=== PATIENT | female | born 1985 | race Caucasian/White ===

== ENCOUNTER → 2017-07-16 | Outpatient (CLI) | payer OTHER ==
[~2017-07-16] MED LIST: ALBU90OI INH; ALBU90OI61 INH; AMOX500 PO; AMPDEX10CR PO; AMPDEX5; ARIP10 PO; BENZ100A PO; BUPR150ER PO; Bactrim Ds Tab1 EACH PO; CEPH500 PO; CIPR500 PO; CLIN300 PO; CLOB.05TC TP; CLON.1 PO; CLON.2 PO; CODGUAEL PO; CRUTCH3 USE; CYCL10 PO; Colace100 MG PO; DOCU100 PO; DOMPERIDONE PO; DULO30 PO; Dilantin 100 m100 MG PO; ENSURE; ERYT500 PO; FAMO40 PO; GUMMY VITAMINS; HYDACE5 PO; HYDACE5325 PO; HYDCOR1TC TOP; HYDPAM25 PO; HYDPAM50 PO; IBUP600 PO; IBUP800 PO; LOPE2EL PO; LORA10ER PO; LORA2 PO; MELO7.5 PO; METH40 PO; METO10 PO; MULVITMINE PO; Miralax17 GM PO; NAPR375 PO; NAPR550 PO; NITR100CA PO; OMEP10ER PO; OMEP20ER PO; ONDA4 PO; ONDA4ODT MM; ONDA8ODT MM; OXYACE5T PO; OXYC15ER PO; PHENA200 PO; PRED20 PO; PROACE100 PO; PROM25 PO; Protonix40 MG PO; Pyridium200 MG PO; QUET200; QUET25 PO; RXCLIN PO; RXHYDACE PO; SUBOXONE 8 MG-1 EACH SL; SULTRIDS PO; TRAM50 PO; UNK ABX; VENL150ER PO; VENL25 PO; VENL75ER PO; Zithromax250 MG PO; Zofran4 MG PO; [UNRECOGNIZED DRUG - REMARK]; [UNRECOGNIZED DRUG - REMARK]; work note
[2017-07-16 18:19] LABS: U Amphetamine Screen Not Detected; U Barbituate Screen Not Detected; U Benzodiazapine Screen Not Detected; U Buprenorphine Screen Not Detected; U Cannabinoids Screen Not Detected; U Cocaine Screen Not Detected; U Methadone Screen DETECTED; U Methamphetamine Screen Not Detected; U Opiates Screen Not Detected; U Oxycodone Screen Not Detected; U Phencyclidine Screen Not Detected; U Propoxyphene Screen Not Detected
== END ==
LOC: LAB 16:54 → LAB SHORT 16:54
PROVIDERS: Psychiatry & Neurology Psychiatry
DX: F11.20 Opioid dependence, uncomplicated (principal)

== ENCOUNTER → 2017-11-06 | Outpatient (CLI) | payer OTHER ==
[2017-11-09 01:08] LABS: CHLAMYDIA TRACHOMATIS, NAA Negative (Negative); NEISSERIA GONORRHOEAE, NAA Negative (Negative)
== END | disposition home or self-care (01) ==
LOC: LAB 18:06 → LAB SHORT 18:06
PROVIDERS: Nurse Practitioner Women's Health
DX: Z11.3 Encounter for screening for infections with a predominantly sexual mode of transmission (principal); N89.8 Other specified noninflammatory disorders of vagina
CPT/HCPCS: 87070; 87205; 87491; 87591

== ENCOUNTER 2017-12-25 17:20 | Emergency (ER) | payer OTHER ==
[~2017-12-25] VITALS: Ht 160 cm; Wt 68.0 kg
[2017-12-25] MEDS ORDERED: Amphetamine Sal20 MG PO (17:43)
[2017-12-25] MEDS ORDERED: Zofran Odt4 MG SL (19:06)
== END 2017-12-25 19:33 | disposition home or self-care (01) ==
LOC: ER 17:20
DX: B34.9 Viral infection, unspecified (principal); F32.9 Major depressive disorder, single episode, unspecified; F17.290 Nicotine dependence, other tobacco product, uncomplicated; Z88.1 Allergy status to other antibiotic agents; Z88.0 Allergy status to penicillin; Z91.010 Allergy to peanuts; Z79.899 Other long term (current) drug therapy
CPT/HCPCS: 99282

== ENCOUNTER 2018-01-21 12:11 | Emergency (ER) | payer OTHER ==
[~2018-01-21] VITALS: Ht 157.5 cm; Wt 63.5 kg
[~2018-01-21 12:11] MED LIST changes: +Amphetamine Sal20 MG PO; +Zofran Odt4 MG SL
[2018-01-21] MEDS ORDERED: TERB2.5 UD (12:52)
[2018-01-21] MEDS ORDERED: BUSP15 (12:53)
[2018-01-21] MEDS ORDERED: CYCL10 PO (14:25)
[2018-01-26] MEDS ORDERED: AMPDEX5 PO (18:46)
[2018-01-26] MEDS ORDERED: BUSP5 PO (18:46)
[2018-01-26] MEDS ORDERED: CEFD300 PO (20:19)
== END 2018-01-21 14:28 | disposition home or self-care (01) ==
LOC: ER 12:11
DX: S30.0XXA Contusion of lower back and pelvis, initial encounter (principal); F32.9 Major depressive disorder, single episode, unspecified; F17.200 Nicotine dependence, unspecified, uncomplicated; Z88.1 Allergy status to other antibiotic agents; Z88.0 Allergy status to penicillin; Z79.899 Other long term (current) drug therapy; Z91.010 Allergy to peanuts; W10.9XXA Fall (on) (from) unspecified stairs and steps, initial encounter
CPT/HCPCS: 72100; 72170; 96372; 99283-25; J1885

== ENCOUNTER → 2018-02-26 | Outpatient (CLI) | payer OTHER ==
[~2018-02-26] MED LIST changes: +AMPDEX5 PO; +BUSP15; +BUSP5 PO; +CEFD300 PO; +TERB2.5 UD
[2018-02-28 01:12] LABS: CHLAMYDIA TRACHOMATIS, NAA Negative (Negative); NEISSERIA GONORRHOEAE, NAA Positive (Negative)
== END | disposition home or self-care (01) ==
LOC: LAB 11:17 → LAB SHORT 11:17
PROVIDERS: Obstetrics & Gynecology Gynecology
DX: N76.0 Acute vaginitis (principal)
CPT/HCPCS: 87070; 87147; 87205; 87491; 87591

== ENCOUNTER → 2018-08-30 | Outpatient (CLI) | payer OTHER ==
[~2018-08-30] MED LIST changes: +BELPTAB PO; +Pepcid20 MG PO
[2018-09-02 04:08] LABS: CHLAMYDIA TRACHOMATIS, NAA Negative (Negative); NEISSERIA GONORRHOEAE, NAA Negative (Negative)
== END | disposition home or self-care (01) ==
LOC: LAB SHORT 14:48 → LAB 14:48
PROVIDERS: Family Medicine
DX: R10.9 Unspecified abdominal pain (principal)
CPT/HCPCS: 87491; 87591

== ENCOUNTER 2018-09-01 17:13 | Emergency (ER) | payer OTHER ==
[~2018-09-01] VITALS: Ht 157.5 cm; Wt 61.2 kg
[~2018-09-01 17:13] MED LIST changes: -BELPTAB PO; -Pepcid20 MG PO
[2018-09-01 18:23] LABS: BASOPHILS ABSOLUTE AUTO 0.01 K/mm3 (0.00-0.23); BASOPHILS PERCENT AUTO 0 % (0-2); EOSINOPHILS ABSOLUTE AUTO 0.03 K/mm3 (0.00-0.68); EOSINOPHILS PERCENT AUTO 0 % (0-6); Hematocrit 44.3 % (33.0-51.0); Hemoglobin 14.8 g/dL (11.5-16.0); IMMATURE GRAN ABSOLUTE AUTO 0.02 K/mm3 (0.00-0.10); IMMATURE GRAN PERCENT AUTO 0 % (0-1); LYMPHOCYTES ABSOLUTE AUTO 1.94 K/mm3 (0.84-5.20); LYMPHOCYTES PERCENT AUTO 23 % (21-46); MONOCYTES ABSOLUTE AUTO 0.48 K/mm3 (0.16-1.47); MONOCYTES PERCENT AUTO 6 % (4-13); Mean Corpuscular HGB 31.6 pg (26.0-34.0); Mean Corpuscular HGB Conc 33.4 g/dL (31.5-36.5); Mean Corpuscular Volume 95 fL (80-100); Mean Platelet Volume 9.8 fL (9.1-12.4); NEUTROPHILS ABSOLUTE AUTO 5.99 K/mm3 (1.96-9.15); NEUTROPHILS PERCENT AUTO 71 % (41-73); Platelet Count 230 K/mm3 (150-400); RDW Standard Deviation 41.5 fL (35.1-46.3); Red Blood Cell Count 4.68 M/mm3 (3.80-5.20); White Blood Cell Count 8.47 K/mm3 (4.00-11.30)
[2018-09-01 18:38] LABS: Alanine Aminotransfer (ALT/SGP 28 U/L (12-78); Albumin, Blood 3.5 g/dL (3.4-5.0); Albumin/Globulin Ratio 0.7 (0.8-1.8); Alk Phos 82 U/L (50-136); Anion Gap 7 mmol/L (6-16); Aspartate Aminotrans (AST/SGOT 37 U/L (12-37); Bilirubin, Total 0.4 mg/dL (0.1-1.0); Blood Urea Nitrogen 13 mg/dL (8-24); Bun/Creatinine Ratio 13.4 (12.0-20.0); CO2, Blood 25 mmol/L (21-32); Calcium, Blood 8.9 mg/dL (8.5-10.1); Chloride, Blood 110 mmol/L (98-108); Creatinine, Blood 0.97 mg/dL (0.40-1.00); Globulin, Blood 4.7 g/dL (2.2-4.0); Glomerular Filtration Rate >60 (60-); Glucose, Blood 101 mg/dL (70-99); Potassium, Blood 4.1 mmol/L (3.5-5.5); Sodium, Blood 142 mmol/L (136-145); Total Protein, Blood 8.2 g/dL (6.4-8.2)
[2018-09-01 18:39] LABS: Source, Urine Clean Catch
[2018-09-01 18:52] LABS: Appearance, Urine Hazy (Clear); Blood, Urine Neg (Neg); Color, Urine Yellow (P-Yellow); Glucose Qualitative, Urine Neg (Neg); Ketones, Urine Neg (Neg); Leukocyte Esterase, Urine 1+ (Neg); Nitrite, Urine Pos (Neg); Protein, Urine 2+ (Neg); Urobilinogen, Urine 1+ (Normal)
[2018-09-01 18:56] LABS: Bilirubin, Urine 3+ (Neg)
[2018-09-01 19:01] LABS: Bacteria Many /hpf; Calcium Oxalate Crystals Mod /hpf; Hyaline Casts 0-2 /lpf (0-2); Red Blood Cells, Urine 0-2 /hpf (0-2); Squamous Epithelial Cells Mod /hpf (Few); WBC Cast 0-2 /lpf (0)
[2018-09-01] MEDS ORDERED: BELPTAB PO (21:56)
[2018-09-01] MEDS ORDERED: Pepcid20 MG PO (21:56)
== END 2018-09-01 22:22 | disposition home or self-care (01) ==
LOC: ER 17:13
PROVIDERS: Emergency Medicine
DX: R10.30 Lower abdominal pain, unspecified (principal); R10.13 Epigastric pain; F32.9 Major depressive disorder, single episode, unspecified; F90.9 Attention-deficit hyperactivity disorder, unspecified type; G56.00 Carpal tunnel syndrome, unspecified upper limb; F17.210 Nicotine dependence, cigarettes, uncomplicated; Z88.0 Allergy status to penicillin; Z91.010 Allergy to peanuts; Z88.1 Allergy status to other antibiotic agents
CPT/HCPCS: 36415; 80053; 81001; 81025; 83690; 85025; 87077; 87086; 87186; 96361; 96374; 96375; 99284-25; J1200; J2765; J7120

== ENCOUNTER → 2018-09-27 | Outpatient (CLI) | payer OTHER ==
[~2018-09-27] MED LIST changes: +AMPDEX15CR PO; +BELPTAB PO; +Buspirone HCl7.5 MG PO; +Cheratussin AC118 ML PO; +Flagyl500 MG PO; +Flonase 0.05% N16 GM; +GABA100 PO; +Pepcid20 MG PO; +Prednisone20 MG PO; +SUBOXONE 4 MG-1 EACH SL; +Sudogest30 MG PO; +VENL75ER; +Vibramycin100 MG PO
== END | disposition home or self-care (01) ==
LOC: LAB 16:00 → LAB SHORT 16:00
DX: R19.7 Diarrhea, unspecified (principal); R10.9 Unspecified abdominal pain
CPT/HCPCS: 87338

== ENCOUNTER 2018-11-24 16:01 | Emergency (ER) | payer OTHER ==
[~2018-11-24] VITALS: Ht 157.5 cm; Wt 65.8 kg
[~2018-11-24 16:01] MED LIST changes: -AMPDEX15CR PO; -Buspirone HCl7.5 MG PO; -Cheratussin AC118 ML PO; -Flagyl500 MG PO; -Flonase 0.05% N16 GM; -GABA100 PO; -Prednisone20 MG PO; -SUBOXONE 4 MG-1 EACH SL; -Sudogest30 MG PO; -VENL75ER; -Vibramycin100 MG PO
[2018-11-24 16:45] LABS: Source, Urine Clean Catch
[2018-11-24 16:48] LABS: Bilirubin, Urine Neg (Neg); Blood, Urine Neg (Neg); Glucose Qualitative, Urine Neg (Neg); Ketones, Urine Neg (Neg); Leukocyte Esterase, Urine Neg (Neg); Nitrite, Urine Neg (Neg); Protein, Urine Neg (Neg); Urobilinogen, Urine NORM (Normal)
[2018-11-24] MEDS ORDERED: IBUP800 PO (16:51)
[2018-11-24] MEDS ORDERED: GABA100 PO (16:51)
[2018-11-24] MEDS ORDERED: Buspirone HCl7.5 MG PO (16:51)
[2018-11-24] MEDS ORDERED: SUBOXONE 4 MG-1 EACH SL (16:51)
[2018-11-24 16:54] LABS: Appearance, Urine Clear (Clear); Color, Urine Yellow (P-Yellow)
[2018-11-24 19:52] LABS: Candida species (DNA Probe) Negative (NEGATIVE); G. vaginalis (DNA Probe) Positive (NEGATIVE); T. vaginalis (DNA Probe) Negative (NEGATIVE)
[2018-11-24] MEDS ORDERED: Flagyl500 MG PO (20:28)
[2018-11-27 02:06] LABS: CHLAMYDIA TRACHOMATIS, NAA Negative (Negative); NEISSERIA GONORRHOEAE, NAA Negative (Negative)
== END 2018-11-24 20:40 | disposition home or self-care (01) ==
LOC: ER 16:01
PROVIDERS: Physician Assistant
DX: N76.0 Acute vaginitis (principal); Z88.1 Allergy status to other antibiotic agents; Z88.0 Allergy status to penicillin; Z91.010 Allergy to peanuts; Z79.899 Other long term (current) drug therapy; F90.9 Attention-deficit hyperactivity disorder, unspecified type; F32.9 Major depressive disorder, single episode, unspecified; F17.210 Nicotine dependence, cigarettes, uncomplicated
CPT/HCPCS: 81003; 87480; 87491; 87510; 87591; 87660; 99284; A9270-GY

== ENCOUNTER → 2018-11-26 | Outpatient (CLI) | payer OTHER ==
[~2018-11-26] MED LIST changes: +AMPDEX15CR PO; +Buspirone HCl7.5 MG PO; +Cheratussin AC118 ML PO; +Flagyl500 MG PO; +Flonase 0.05% N16 GM; +GABA100 PO; +Prednisone20 MG PO; +SUBOXONE 4 MG-1 EACH SL; +Sudogest30 MG PO; +VENL75ER; +Vibramycin100 MG PO
[2018-11-29 02:06] LABS: CHLAMYDIA TRACHOMATIS, NAA Negative (Negative); NEISSERIA GONORRHOEAE, NAA Negative (Negative)
== END | disposition home or self-care (01) ==
LOC: LAB SHORT 17:36 → LAB 17:36
PROVIDERS: Nurse Practitioner Women's Health
DX: Z20.2 Contact with and (suspected) exposure to infections with a predominantly sexual mode of transmission (principal)
CPT/HCPCS: 87070; 87205; 87491; 87591

== ENCOUNTER → 2018-12-03 | Outpatient (CLI) | payer OTHER ==
[2018-12-04 14:07] LABS: HPV 16 Negative (Negative); HPV 18 Negative (Negative); HPV OTHER HR TYPES Negative (Negative)
== END | disposition home or self-care (01) ==
LOC: LAB SHORT 12:25 → LAB 12:25
PROVIDERS: Nurse Practitioner Women's Health
DX: Z12.4 Encounter for screening for malignant neoplasm of cervix (principal); Z91.89 Other specified personal risk factors, not elsewhere classified
CPT/HCPCS: 87624; G0123

== ENCOUNTER → 2018-12-16 | Outpatient (CLI) | payer OTHER ==
[2018-12-16 15:42] LABS: U Amphetamine Screen Not Detected; U Barbituate Screen Not Detected; U Benzodiazapine Screen Not Detected; U Buprenorphine Screen DETECTED; U Cannabinoids Screen Not Detected; U Cocaine Screen Not Detected; U Methadone Screen Not Detected; U Methamphetamine Screen Not Detected; U Opiates Screen Not Detected; U Oxycodone Screen Not Detected; U Phencyclidine Screen Not Detected; U Propoxyphene Screen Not Detected
== END | disposition home or self-care (01) ==
LOC: LAB 15:00 → LAB SHORT 15:00
PROVIDERS: Psychiatry & Neurology Psychiatry
DX: Z51.81 Encounter for therapeutic drug level monitoring (principal); Z79.899 Other long term (current) drug therapy
CPT/HCPCS: G0480

== ENCOUNTER → 2019-01-12 | Outpatient (CLI) | payer OTHER | END | disposition home or self-care (01) | LOC: LAB SHORT 16:10 → LAB 16:10 | DX: J06.9 Acute upper respiratory infection, unspecified (principal) | CPT/HCPCS: 87081 ==

== ENCOUNTER 2019-01-24 16:26 | Emergency (ER) | payer OTHER ==
[~2019-01-24] VITALS: Ht 162.6 cm; Wt 65.8 kg
[~2019-01-24 16:26] MED LIST changes: -AMPDEX15CR PO; -Cheratussin AC118 ML PO; -Flonase 0.05% N16 GM; -Prednisone20 MG PO; -Sudogest30 MG PO; -VENL75ER; -Vibramycin100 MG PO
[2019-01-24] MEDS ORDERED: GABA100 PO (16:43)
[2019-01-24] MEDS ORDERED: AMPDEX15CR PO (16:43)
[2019-01-24] MEDS ORDERED: VENL75ER (16:43)
[2019-01-24] MEDS ORDERED: Sudogest30 MG PO (17:01)
[2019-01-24] MEDS ORDERED: Flonase 0.05% N16 GM (17:01)
[2019-01-24] MEDS ORDERED: Cheratussin AC118 ML PO (17:01)
[2019-01-24] MEDS ORDERED: Vibramycin100 MG PO (17:01)
== END 2019-01-24 17:09 | disposition home or self-care (01) ==
LOC: ER 16:26
DX: J32.9 Chronic sinusitis, unspecified (principal); H65.90 Unspecified nonsuppurative otitis media, unspecified ear; F32.9 Major depressive disorder, single episode, unspecified; F90.9 Attention-deficit hyperactivity disorder, unspecified type; F17.210 Nicotine dependence, cigarettes, uncomplicated; Z88.1 Allergy status to other antibiotic agents; Z88.0 Allergy status to penicillin; Z91.018 Allergy to other foods; Z79.899 Other long term (current) drug therapy
CPT/HCPCS: 71046; 99283-25; J1100

== ENCOUNTER 2019-01-28 16:08 | Emergency (ER) | payer OTHER ==
[~2019-01-28] VITALS: Ht 162.6 cm; Wt 63.5 kg
[~2019-01-28 16:08] MED LIST changes: +AMPDEX15CR PO; +Cheratussin AC118 ML PO; +Flonase 0.05% N16 GM; +Sudogest30 MG PO; +VENL75ER; +Vibramycin100 MG PO
== END 2019-01-28 16:25 | disposition home or self-care (01) ==
LOC: ER 16:08
DX: J32.9 Chronic sinusitis, unspecified (principal); Z88.1 Allergy status to other antibiotic agents; Z88.0 Allergy status to penicillin; Z91.018 Allergy to other foods; Z79.899 Other long term (current) drug therapy
CPT/HCPCS: 99281

== ENCOUNTER 2019-02-01 17:54 | Emergency (ER) | payer OTHER ==
[~2019-02-01] VITALS: Ht 162.6 cm; Wt 65.8 kg
[2019-02-01] MEDS ORDERED: Vibramycin100 MG PO (18:08)
[2019-02-01] MEDS ORDERED: Prednisone20 MG PO (18:08)
== END 2019-02-01 18:12 | disposition home or self-care (01) ==
LOC: ER 17:54
DX: J32.9 Chronic sinusitis, unspecified (principal); Z88.1 Allergy status to other antibiotic agents; Z88.0 Allergy status to penicillin; Z91.010 Allergy to peanuts; Z79.899 Other long term (current) drug therapy; F90.9 Attention-deficit hyperactivity disorder, unspecified type; F32.9 Major depressive disorder, single episode, unspecified; F17.210 Nicotine dependence, cigarettes, uncomplicated
CPT/HCPCS: 99283; J1100

== ENCOUNTER 2019-02-26 12:34 | Emergency (ER) | payer OTHER ==
[~2019-02-26] VITALS: Ht 160 cm; Wt 69.0 kg
[~2019-02-26 12:34] MED LIST changes: +Prednisone20 MG PO
[2019-02-26] MEDS ORDERED: SUBOXONE 8 MG-1 EACH SL (13:25)
[2019-02-26] MEDS ORDERED: VENL75ER (13:25)
[2019-02-26] MEDS ORDERED: Cleocin HCl300 MG PO (13:32)
== END 2019-02-26 13:48 | disposition home or self-care (01) ==
LOC: ER 12:34
DX: K08.89 Other specified disorders of teeth and supporting structures (principal); F32.9 Major depressive disorder, single episode, unspecified; F90.9 Attention-deficit hyperactivity disorder, unspecified type; F17.290 Nicotine dependence, other tobacco product, uncomplicated; Z79.899 Other long term (current) drug therapy; Z88.0 Allergy status to penicillin
CPT/HCPCS: 99282

== ENCOUNTER 2019-06-13 19:03 | Emergency (ER) | payer OTHER ==
[~2019-06-13] VITALS: Ht 157.5 cm; Wt 70.8 kg
[~2019-06-13 19:03] MED LIST changes: +Cleocin HCl300 MG PO
[2019-06-13 19:22] LABS: Source, Urine Clean Catch
[2019-06-13 19:33] LABS: Appearance, Urine Clear (Clear); Bilirubin, Urine Neg (Neg); Blood, Urine Neg (Neg); Color, Urine Yellow (P-Yellow); Glucose Qualitative, Urine Neg (Neg); Ketones, Urine Neg (Neg); Leukocyte Esterase, Urine Neg (Neg); Nitrite, Urine Neg (Neg); Protein, Urine 1+ (Neg); Specific Gravity, Urine 1.025 (1.003-1.022); Urobilinogen, Urine NORM (Normal)
== END 2019-06-13 21:11 | disposition home or self-care (01) ==
LOC: ER 19:03
PROVIDERS: Physician Assistant
DX: B34.9 Viral infection, unspecified (principal); F90.9 Attention-deficit hyperactivity disorder, unspecified type; F32.9 Major depressive disorder, single episode, unspecified; F17.290 Nicotine dependence, other tobacco product, uncomplicated; Z88.1 Allergy status to other antibiotic agents; Z88.0 Allergy status to penicillin; Z91.010 Allergy to peanuts; Z79.899 Other long term (current) drug therapy
CPT/HCPCS: 81025; 87081; 87430; 99283

== ENCOUNTER 2019-09-14 17:13 | Emergency (ER) | payer OTHER ==
[~2019-09-14] VITALS: Ht 157.5 cm; Wt 70.3 kg
[2019-09-14 17:40] LABS: Source, Urine Clean Catch
[2019-09-14 17:54] LABS: Bilirubin, Urine Neg (Neg); Blood, Urine Neg (Neg); Glucose Qualitative, Urine Neg (Neg); Ketones, Urine Neg (Neg); Leukocyte Esterase, Urine Neg (Neg); Nitrite, Urine Neg (Neg); Protein, Urine Neg (Neg); Urobilinogen, Urine NORM (Normal)
[2019-09-14 18:03] LABS: Appearance, Urine Hazy (Clear); Color, Urine Yellow (P-Yellow)
[2019-09-14 18:11] LABS: Amorphous Mod (0-Heavy); Bacteria Few /hpf; Red Blood Cells, Urine Not Seen /hpf (0-2); Squamous Epithelial Cells Mod /hpf (Few); White Blood Cells, Urine Not Seen /hpf (0-5)
[2019-09-14] MEDS ORDERED: LEVO750 PO (20:40)
== END 2019-09-14 20:46 | disposition home or self-care (01) ==
LOC: ER 17:13
PROVIDERS: Physician Assistant
DX: N39.0 Urinary tract infection, site not specified (principal); F32.9 Major depressive disorder, single episode, unspecified; F90.9 Attention-deficit hyperactivity disorder, unspecified type; F17.290 Nicotine dependence, other tobacco product, uncomplicated; Z88.1 Allergy status to other antibiotic agents; Z88.0 Allergy status to penicillin; Z91.010 Allergy to peanuts; Z79.899 Other long term (current) drug therapy
CPT/HCPCS: 81001; 99283

== ENCOUNTER 2020-02-18 09:22 | Emergency (ER) | payer OTHER ==
[~2020-02-18] VITALS: Ht 157.5 cm; Wt 68.0 kg
[~2020-02-18 09:22] MED LIST changes: +LEVO750 PO
[2020-02-18] MEDS ORDERED: ZEBUTAL 50-3251 EAC1 PO (10:07)
[2020-02-18] MEDS ORDERED: PROM25 PO (10:07)
== END 2020-02-18 10:22 | disposition home or self-care (01) ==
LOC: ER 09:22
DX: G43.909 Migraine, unspecified, not intractable, without status migrainosus (principal); F17.290 Nicotine dependence, other tobacco product, uncomplicated; F32.9 Major depressive disorder, single episode, unspecified; F90.9 Attention-deficit hyperactivity disorder, unspecified type; Z79.899 Other long term (current) drug therapy
CPT/HCPCS: 99283

== ENCOUNTER 2020-05-08 16:04 | Emergency (ER) | payer OTHER ==
[~2020-05-08] VITALS: Ht 160 cm; Wt 65.8 kg
[~2020-05-08 16:04] MED LIST changes: +ZEBUTAL 50-3251 EAC1 PO
[2020-05-08] MEDS ORDERED: CLIN300 PO (18:06)
== END 2020-05-08 18:24 | disposition home or self-care (01) ==
LOC: ER 16:04
DX: L02.415 Cutaneous abscess of right lower limb (principal); F17.200 Nicotine dependence, unspecified, uncomplicated; Z79.899 Other long term (current) drug therapy; Z88.0 Allergy status to penicillin; Z91.018 Allergy to other foods; Z88.1 Allergy status to other antibiotic agents
CPT/HCPCS: 10061; 99282-25; A9270

== ENCOUNTER 2020-11-04 13:57 | Emergency (ER) | payer OTHER ==
[~2020-11-04] VITALS: Ht 162.6 cm; Wt 61.2 kg
== END 2020-11-04 18:33 | disposition left against medical advice (07) ==
LOC: ER 13:57
DX: Z53.21 Procedure and treatment not carried out due to patient leaving prior to being seen by health care provider (principal)
CPT/HCPCS: 71046

== ENCOUNTER 2023-02-02 17:07 | Emergency (ER) | payer OTHER ==
[~2023-02-02] VITALS: Ht 160 cm; Wt 80.7 kg
[2023-02-02 17:33] VITALS: BP 139/93
== END 2023-02-02 17:40 | disposition home or self-care (01) ==
LOC: ER 17:07
DX: S30.1XXA Contusion of abdominal wall, initial encounter (principal); X58.XXXA Exposure to other specified factors, initial encounter; Z88.1 Allergy status to other antibiotic agents; Z91.010 Allergy to peanuts; Z88.0 Allergy status to penicillin; Z79.899 Other long term (current) drug therapy; F17.290 Nicotine dependence, other tobacco product, uncomplicated
CPT/HCPCS: 99282

== ENCOUNTER 2023-02-09 22:33 | Emergency (ER) | payer OTHER ==
[~2023-02-09] VITALS: Ht 157.5 cm; Wt 73.9 kg
[2023-02-09 22:45] VITALS: BP 142/117
[2023-02-10] MEDS ORDERED: ZEBUTAL 50-3251 EA10 PO (21:00)
== END 2023-02-09 23:30 | disposition home or self-care (01) ==
LOC: ER 22:33
DX: H92.01 Otalgia, right ear (principal); F17.290 Nicotine dependence, other tobacco product, uncomplicated; Z88.0 Allergy status to penicillin; Z88.1 Allergy status to other antibiotic agents; Z91.010 Allergy to peanuts; Z91.030 Bee allergy status; Z79.899 Other long term (current) drug therapy
CPT/HCPCS: 99282

== ENCOUNTER 2023-02-10 19:21 | Emergency (ER) | payer OTHER ==
[~2023-02-10] VITALS: Ht 157.5 cm; Wt 74.8 kg
[2023-02-10 19:34] VITALS: BP 141/91
[2023-02-10] MEDS ORDERED: ZEBUTAL 50-3251 EA10 PO (21:00)
== END 2023-02-10 21:13 | disposition home or self-care (01) ==
LOC: ER 19:21
DX: G43.909 Migraine, unspecified, not intractable, without status migrainosus (principal); F17.290 Nicotine dependence, other tobacco product, uncomplicated; Z88.0 Allergy status to penicillin; Z91.010 Allergy to peanuts; Z88.1 Allergy status to other antibiotic agents; Z91.030 Bee allergy status; Z79.899 Other long term (current) drug therapy
CPT/HCPCS: 99283; A9270

== ENCOUNTER 2023-03-20 10:37 | Emergency (ER) | payer OTHER ==
[~2023-03-20] VITALS: Ht 160 cm; Wt 70.3 kg
[~2023-03-20 10:37] MED LIST changes: +ZEBUTAL 50-3251 EA10 PO
[2023-03-20 11:05] VITALS: BP 128/94
== END 2023-03-20 11:39 | disposition home or self-care (01) ==
LOC: ER 10:37
DX: S20.211A Contusion of right front wall of thorax, initial encounter (principal); F17.290 Nicotine dependence, other tobacco product, uncomplicated; Z79.899 Other long term (current) drug therapy; Z88.1 Allergy status to other antibiotic agents; F90.9 Attention-deficit hyperactivity disorder, unspecified type; W10.9XXA Fall (on) (from) unspecified stairs and steps, initial encounter; Y93.01 Activity, walking, marching and hiking
CPT/HCPCS: 71101; 99283-25

== ENCOUNTER 2023-04-26 11:07 | Emergency (ER) | payer OTHER ==
[~2023-04-26] VITALS: Ht 160 cm; Wt 65.8 kg
[2023-04-26 11:12] VITALS: BP 121/73
[2023-04-26] MEDS ORDERED: DOXY100 (11:16)
[2023-04-26] MEDS ORDERED: ALPR.25 (11:16)
== END 2023-04-26 12:40 | disposition home or self-care (01) ==
LOC: ER 11:07
DX: R51.9 Headache, unspecified (principal); Z88.0 Allergy status to penicillin; Z88.1 Allergy status to other antibiotic agents; Z91.010 Allergy to peanuts; Z91.030 Bee allergy status; Z79.899 Other long term (current) drug therapy; F17.290 Nicotine dependence, other tobacco product, uncomplicated; Z86.19 Personal history of other infectious and parasitic diseases
CPT/HCPCS: 96361; 96374; 96375; 99283; J0780; J1200; J1885; J7030

== ENCOUNTER 2024-01-16 04:53 | Emergency (ER) | payer OTHER ==
[~2024-01-16] VITALS: Ht 160 cm; Wt 63.5 kg
[~2024-01-16 04:53] MED LIST changes: +ALPR.25; +DOXY100
[2024-01-16 05:02] VITALS: BP 141/86
[2024-01-16 05:51] LABS: Source, Urine Clean Catch
[2024-01-16 05:56] LABS: Appearance, Urine Hazy (Clear); Bilirubin, Urine Neg (Neg); Blood, Urine 2+ (Neg); Color, Urine Yellow (P-Yellow); Glucose Qualitative, Urine Neg (Neg); Ketones, Urine Neg (Neg); Leukocyte Esterase, Urine 1+ (Neg); Nitrite, Urine Pos (Neg); Protein, Urine 1+ (Neg); Urobilinogen, Urine NORM (Normal)
[2024-01-16 06:06] LABS: Bacteria Many /hpf; Mucus Light (0-Heavy); Squamous Epithelial Cells Mod /hpf (Few)
[2024-01-16] MEDS ORDERED: PredniSONE 20 MG Tab PO ONE (06:10)
[2024-01-16] MEDS ORDERED: Ipratropium/Albuterol SulF 2.5-0.5MG/3 ML Amp INH ONE (06:10)
[2024-01-16] MEDS ORDERED: Doxycycline Hyclate 100 MG TAB PO ONE (06:45)
[2024-01-16] MEDS ORDERED: CefTRIAXone 1000 MG Vial IM ONE (06:45)
[2024-01-16] MEDS ORDERED: SYMBICORT 80-46.9 GM INH (06:51)
[2024-01-16] MEDS ORDERED: ALBU90OI INH (06:51)
[2024-01-16] MEDS ORDERED: DOXY100 PO (06:51)
[2024-01-16] MEDS ORDERED: PRED20 PO (06:51)
[2024-01-16] MEDS ORDERED: CefTRIAXone 500 MG Vial IM ONE (07:35)
[2024-01-16 08:35] LABS: Bacterial Vaginosis PCR Negative (NEGATIVE); Candida Group, PCR NOT DETECTED (NOT DETECT); Candida glabrata-krusei, PCR NOT DETECTED (NOT DETECT)
[2024-01-16 09:07] LABS: Chlamydia Trachomatis Cervix NOT DETECTED (NOT DETECT); Neisseria Gonorrhoea Cervix NOT DETECTED (NOT DETECT)
[2024-01-16] MEDS ORDERED: METR500 PO (12:01)
== END 2024-01-16 07:47 | disposition home or self-care (01) ==
LOC: ER 04:53
PROVIDERS: Emergency Medicine; Student in an Organized Health Care Education/Training Program
DX: A59.01 Trichomonal vulvovaginitis (principal); J45.901 Unspecified asthma with (acute) exacerbation; F17.290 Nicotine dependence, other tobacco product, uncomplicated; Z79.899 Other long term (current) drug therapy; Z88.1 Allergy status to other antibiotic agents; Z91.010 Allergy to peanuts; Z88.0 Allergy status to penicillin; Z91.030 Bee allergy status
CPT/HCPCS: 71046; 81001; 87077; 87086; 87186; 87481; 87491; 87591; 87661; 87801; 94640; 94664; 96372; 99284-25; A9270; J0696; J7512

== ENCOUNTER 2024-12-15 21:15 | Emergency (ER) | payer OTHER ==
[~2024-12-15] VITALS: Ht 160 cm; Wt 72.6 kg
[~2024-12-15 21:15] MED LIST changes: +DOXY100 PO; +FLAGYL500 M1 PO; +METR500 PO; +SYMBICORT 80-46.9 GM INH
[2024-12-15 21:54] LABS: Source, Urine Clean Catch
[2024-12-15 22:14] LABS: Glucose Qualitative, Urine Neg (Neg); Ketones, Urine Neg (Neg); Leukocyte Esterase, Urine 2+ (Neg); Protein, Urine 2+ (Neg); Specific Gravity, Urine 1.025 (1.003-1.022); Urobilinogen, Urine 3+ (Normal)
[2024-12-15 22:27] LABS: Bilirubin, Urine 2+ (Neg); Color, Urine Orange (P-Yellow)
[2024-12-15 22:29] LABS: White Blood Cells, Urine 50-100 /hpf (0-5)
[2024-12-15] MEDS ORDERED: BACTRIM DS TAB1 EAC1 PO (23:46)
[2024-12-15] MEDS ORDERED: Trimethoprim/Sulfamethoxazole DS Tab PO ONE (23:50)
[2024-12-16 00:01] VITALS: BP 139/96
== END 2024-12-16 00:02 | disposition home or self-care (01) ==
LOC: ER 21:15
PROVIDERS: Physician Assistant
DX: N12 Tubulo-interstitial nephritis, not specified as acute or chronic (principal); Z79.51 Long term (current) use of inhaled steroids; Z79.899 Other long term (current) drug therapy; Z88.0 Allergy status to penicillin; Z88.1 Allergy status to other antibiotic agents; Z91.038 Other insect allergy status
CPT/HCPCS: 81001; 87077; 87086; 87186; 99283; A9270